=== PATIENT | female | born 1970 | race Caucasian/White ===

== ENCOUNTER 2017-03-22 02:21 | Observation (INO) | payer BC ==
[~2017-03-22 02:21] MED LIST: Z.0.NO CURRENT MEDS
[2017-03-22 02:22] VITALS: BP 139/69; PULSE 114; RESP 18; TEMP 97.8; O2SAT 98
[2017-03-22] MEDS ORDERED: ASPIRIN 81 MG CHEW TAB PO ONE (03:00)
[2017-03-22] MEDS ORDERED: SODIUM CHLORIDE 0.9% FLUSH 10 ML FLUSH IVF PRN (03:00)
[2017-03-22] MEDS ORDERED: NITROGLYCERIN 0.4 MG SL 25 TABS/BTL SL ONE (03:00)
[2017-03-22 03:01] VITALS: BP_SYST 183; BP_SYST 189; BP_DIAS 102; BP_DIAS 108; PULSE 99; RESP 18; O2SAT 98
--- NOTE | 2017-03-22 03:21 | RADRPT ---
EXAM DATE/TIME: 03/22/2017 02:59 [facility] COMPARISON: No previous studies available for comparison. INDICATIONS : Chest pain. MEDICAL HISTORY : None. SURGICAL HISTORY : None. ENCOUNTER: Initial ACUITY: 1 day PAIN SCORE: 0/10 LOCATION: Bilateral chest FINDINGS: A single view of the chest demonstrates the lungs to be symmetrically aerated without evidence of mas s, infiltrate or effusion. The cardiomediastinal contours are unremarkable. Osseous structures are intact. Anterior plate in the lower cervical region. CONCLUSION: No infiltrates seen. Titus Batres MD on March 22, 2017 at 3:18 Board Certified Radiologist. This report was verified electronically.
--- NOTE | 2017-03-22 03:23 | PD ---
HPI Chief Complaint: Chest Pain Time Seen by Provider: 02:50 Travel History International Travel<30 days: No Contact w/Intl Traveler<30days: No Traveled to known affect area: No History of Present Illness HPI The patient is a 46 year old female who presents to the [facility] emergency department with a history of chest pain that she reports has been coming and going for the last 2 weeks. She reports that it seems to get worse at night. She denies having any associated indigestion or heartburn. She reports that the pain is a sharp sensation with a sensation of fluttering in her chest. She reports that she has associated shortness of breath, nausea, and diaphoresis. She reports that the pain radiates up into the left side of her neck and left arm. She reports that prior to arrival the pain awoke her from sound sleep. She reports that the pain had been occurring and lasting for a few minutes at a time, however prior to arrival lasting longer than usual. She reports that the pain was a 10 out of 10 in severity. On arrival it is a 3 out of 10 in severity. She denies any prior history of cardiac disease. She reports that she did have a stress test that was reportedly unremarkable 2 years ago. She reports having a history of borderline high blood pressure. She denies having any prior history of hyperlipidemia or diabetes mellitus. On review of systems, the patient denies any recent fever, cough, congestion, neck pain, abdominal pain, vomiting, diarrhea, urinary symptoms, or other neurologic symptoms. [facility] Past Medical History Narrative Medical The patient's past medical history is significant for lupus, history of interstitial pneumonitis, history of headaches Blood Disorders: No Cancer: No Cardiovascular Problems: No Diminished Hearing: No Headaches: Yes Immune Disorder: Yes (LUPUS) Psychiatric: No Reproductive: No Respiratory: Yes (INTERSTITIAL PNEUMONITIS) Pneumonia: Yes (interstitial pneumonitis) ?: Not Past Surgical History Narrative Surgical The patient's past surgical history is significant for bronchoscopy, disc replacement in her neck, open lung biopsy 1998. Body Medical Devices: NONE Thoracic Surgery: Yes (OPEN LUNG BX 1998) Other Surgery: Yes (bronchoscopy) Social History Alcohol Use: Yes (OCC) Tobacco Use: No Substance Use: No Allergies-Medications (Allergen,Severity, Reaction): Coded Allergies: Mushroom (Verified Allergy, Unknown, SWELLING, 03/22/17) Shellfish (Verified Allergy, Unknown, 8/14/17) Reported Meds & Prescriptions Reported Meds & Active Scripts Active Reported No Current Meds (Miscellaneous Medication) Misc Review of Systems Except as stated in HPI: all other systems reviewed are Neg General / Constitutional: No: Fever Eyes: No: Visual changes HENT: No: Headaches Cardiovascular: Positive: Chest Pain or Discomfort, Diaphoresis, Claudication, No: Dyspnea on exertion Respiratory: Positive: Shortness of Breath Gastrointestinal: Positive: Nausea, No: Vomiting, Diarrhea, Abdominal Pain Genitourinary: No: Dysuria Musculoskeletal: No: Pain Skin: No Rash Neurologic: No: Weakness Psychiatric: No: Depression Endocrine: No: Polydipsia Hematologic/Lymphatic: No: Easy Bruising Physical Exam Narrative General: The patient is a well-developed well-nourished female who is uncomfortable appearing on arrival. Head and Neck exam: Head is normocephalic atraumatic. Eyes: EOMI, pupils are equal round and reactive to light. Nose: Midline septum with pink mucous membranes Mouth: Dentition unremarkable. Moist mucus membranes. Posterior oropharynx is not erythematous. No tonsillar hypertrophy. Uvula midline. Airway patent. Neck: No palpable lymphadenopathy. No nuchal rigidity. No thyromegaly. Cardiovascular: Regular rate and rhythm without murmurs, gallops, or rubs. No pulse deficit to the extremities and simultaneous auscultation and palpation of her radial artery. Lungs: Clear to auscultation bilaterally. No wheezes, rhonchi, or rales. Abdomen: Soft, without tenderness to palpation in all 4 quadrants of the abdomen. No guarding, rebound, or rigidity. Normal bowel sounds are audible. No tenderness on palpation of McBurney's point. Extremities: No clubbing, cyanosis, or edema. 2+ pulses in all 4 extremities. No calf tenderness on palpation. Back: No spinous process tenderness to palpation. No costovertebral angle tenderness to palpation. Neurologic Exam: Grossly nonfocal. Skin Exam: No rash noted. Intact skin that is warm and slightly diaphoretic Data Data Last Documented VS Vital Signs Date Time Temp Pulse Resp B/P Pulse Ox O2 Delivery O2 Flow Rate FiO2 03/22/17 03:29 16 03/22/17 03:01 98 Room Air 03/22/17 03:01 99 183/108 189/102 03/22/17 02:22 97.8 Orders Electrocardiogram (03/22/17 02:51) B-Type Natriuretic Peptide (03/22/17 02:51) Ckmb (Isoenzyme) Profile (03/22/17 02:51) Complete Blood Count With Diff (03/22/17 02:51) Comprehensive Metabolic Panel (03/22/17 02:51) D-Dimer (03/22/17 02:51) Magnesium (Mg) (03/22/17 02:51) Prothrombin Time / Inr (Pt) (03/22/17 02:51) Act Partial Throm Time (Ptt) (03/22/17 02:51) Troponin I (03/22/17 02:51) Lipase (03/22/17 02:51) Chest, Single Ap (03/22/17 02:51) Ecg Monitoring (03/22/17 02:51) Bilateral Bp Monitoring (03/22/17 02:51) Iv Access Insert/Monitor (03/22/17 02:51) Oximetry (03/22/17 02:51) Oxygen Administration (03/22/17 02:51) Aspirin Chew (Aspirin Chew) (03/22/17 03:00) Sodium Chloride 0.9% Flush (Ns Flush) (03/22/17 03:00) Nitroglycerin Sl (Nitrostat Sl) (03/22/17 03:00) Ed Urine Pregnancytest Poc (03/22/17 02:51) Nitroglycerin 2% Oint (Nitroglycerin 2% (03/22/17 03:30) Westergren Sedimentation Rate (03/22/17 03:23) Admit Order (Ed Use Only) (03/22/17 04:10) Labs Laboratory Tests Test 03/22/17 03:23 White Blood Count 10.8 TH/MM3 Red Blood Count 4.62 MIL/MM3 Hemoglobin 13.5 GM/DL Hematocrit 39.7 % Mean Corpuscular Volume 85.8 FL Mean Corpuscular Hemoglobin 29.2 PG Mean Corpuscular Hemoglobin 34.0 % Concent Red Cell Distribution Width 14.1 % Platelet Count 247 TH/MM3 Mean Platelet Volume 9.3 FL Neutrophils (%) (Auto) 63.8 % Lymphocytes (%) (Auto) 26.7 % Monocytes (%) (Auto) 6.8 % Eosinophils (%) (Auto) 1.9 % Basophils (%) (Auto) 0.8 % Neutrophils # (Auto) 6.9 TH/MM3 Lymphocytes # (Auto) 2.9 TH/MM3 Monocytes # (Auto) 0.7 TH/MM3 Eosinophils # (Auto) 0.2 TH/MM3 Basophils # (Auto) 0.1 TH/MM3 CBC Comment DIFF FINAL Differential Comment Prothrombin Time 9.6 SEC Prothromb Time International 0.9 RATIO Ratio Activated Partial 21.5 SEC Thromboplast Time D-Dimer Quantitative (PE/DVT) 0.24 MG/L FEU Sodium Level 141 MEQ/L Potassium Level 4.0 MEQ/L Chloride Level 106 MEQ/L Carbon Dioxide Level 26.8 MEQ/L Anion Gap 8 MEQ/L Blood Urea Nitrogen 11 MG/DL Creatinine 1.00 MG/DL Estimat Glomerular Filtration 60 ML/MIN Rate Random Glucose 115 MG/DL Calcium Level 8.7 MG/DL Magnesium Level 2.0 MG/DL Total Bilirubin 0.2 MG/DL Aspartate Amino Transf 16 U/L (AST/SGOT) Alanine Aminotransferase 17 U/L (ALT/SGPT) Alkaline Phosphatase 88 U/L Total Creatine Kinase 57 U/L Troponin I LESS THAN 0.02 NG/ML B-Type Natriuretic Peptide 25 PG/ML Total Protein 7.3 GM/DL Albumin 3.2 GM/DL Lipase 146 U/L [facility] Medical Decision Making Medical Screen Exam Complete: Yes Emergency Medical Condition: Yes Medical Record Reviewed: Yes Interpretation(s) Last Impressions Chest X-Ray 03/22/17 0251 Signed Impressions: Service Date/Time: Wednesday, March 22, 2017 02:59 - CONCLUSION: No infiltrates seen. Titus Batres MD Differential Diagnosis Acute coronary syndrome, versus pulmonary embolism, versus pericarditis, versus acid reflux, versus pneumonia versus pneumothorax Narrative Course During the course of the patients emergency department visit, the patients history, examination, and differential diagnosis were reviewed with the patient. The patient had IV access obtained and blood work sent for analysis. The patient was placed on a pie filler with oximetry and blood pressure monitoring. An ECG was done on arrival. The patient's ECG reveals a sinus rhythm heart rate of 94, no acute ST segment elevation or depression, T waves are inverted in lead 3, QRS duration is 102 ms, QTC 411 ms. The patient was initially provided 162 mg of aspirin by mouth, nitroglycerin sublingual times one with resolution of pain, nitroglycerin 1 inch the chest wall was then applied. The patients laboratory studies were reviewed and remarkable for a CBC that is within normal limits, CMP is remarkable for a glucose of 115, CPK 57, troponin I less than 0.02, BNP 25, lipase 147, d-dimer is 0.2 for decreased the likelihood of pulmonary embolism in this patient with no other significant risk factors. PT 9.6, PTT 21.5. Radiology studies were reviewed and remarkable for a chest x-ray that shows no acute cardiopulmonary disease. The patients results were discussed with the patient, including the plan of care. I explained that further testing and/ or monitoring is indicated based on the patients history, examination, and/ or laboratory findings. Therefore, I recommended admission for additional evaluation. The patient expressed understanding and was agreeable with this plan. The patient was admitted to the hospital in [facility] and sent to a bed under the care of of the chest pain center. Diagnosis Primary Impression: Chest pain, rule out acute myocardial infarction Admitting Information Admitting Physician Requests: Lynnette Gutierrez MD Mar 22, 2017 03:23
[2017-03-22] MEDS ORDERED: NITROGLYCERIN 2% OINT 1 GM PACKET TOPICAL ONE (03:30)
[2017-03-22 03:38] LABS: AUTOMATED NEUTROPHIL # 6.9 TH/MM3 (1.8-7.7); BASOPHIL # 0.1 TH/MM3 (0-0.2); BASOPHIL % 0.8 % (0.0-2.0); EOSINOPHIL # 0.2 TH/MM3 (0-0.4); EOSINOPHIL % 1.9 % (0.0-4.0); HEMATOCRIT 39.7 % (35.0-46.0); HEMO FLAGS DIFF FINAL; LYMPH % 26.7 % (9.0-44.0); LYMPHOCYTE # 2.9 TH/MM3 (1.0-4.8); MEAN CELL VOLUME 85.8 FL (80.0-100.0); MEAN CORPUSCULAR HEMOGLOBIN 29.2 PG (27.0-34.0); MONO % 6.8 % (0.0-8.0); NEUT % 63.8 % (16.0-70.0); PLATELET COUNT 247 TH/MM3 (150-450); RED BLOOD COUNT 4.62 MIL/MM3 (4.00-5.30); RED CELL DISTRIBUTION WIDTH 14.1 % (11.6-17.2); WHITE BLOOD COUNT 10.8 TH/MM3 (4.0-11.0)
[2017-03-22 03:56] LABS: APTT (PATIENT) 21.5 SEC (24.3-30.1); INTERNATIONAL NORMALIZED RATIO 0.9 RATIO; PROTHROMBIN TIME - PATIENT 9.6 SEC (9.8-11.6)
[2017-03-22 03:59] LABS: ALKALINE PHOSPHATASE 88 U/L (45-117); ALT (GPT) 17 U/L (10-53); ANION GAP 8 MEQ/L (5-15); AST (GOT) 16 U/L (15-37); BICARBONATE 26.8 MEQ/L (21.0-32.0); BLOOD UREA NITROGEN 11 MG/DL (7-18); CHLORIDE 106 MEQ/L (98-107); CREATINE KINASE 57 U/L (26-192); GLOMERULAR FILTRATION RATE 60 ML/MIN (>89); SODIUM (NA) 141 MEQ/L (136-145); TOTAL BILIRUBIN ADULT 0.2 MG/DL (0.2-1.0)
[2017-03-22 04:24] VITALS: BP 156/90; PULSE 85; RESP 16; O2SAT 98
[2017-03-22] MEDS ORDERED: SODIUM CHLORIDE 0.9% FLUSH 10 ML FLUSH IV FLUSH PRN (05:00)
[2017-03-22] MEDS ORDERED: ACETAMINOPHEN 500 MG CPLT PO PRN (05:00)
[2017-03-22 05:34] VITALS: O2SAT 98
[2017-03-22 07:29] LABS: CREATINE KINASE 42 U/L (26-192)
[2017-03-22 07:44] VITALS: PULSE 83
[2017-03-22 07:49] VITALS: BP 133/74; PULSE 80; RESP 16; TEMP 98; O2SAT 96
--- NOTE | 2017-03-22 08:03 | HHI.HP ---
HPI Primary Care Physician Daniela Thomson MD Chief Complaint Chest pain History of Present Illness 46-year-old female with history of lupus and interstitial pneumonia presents to emergency room for further evaluation of chest pain. Onset 2 weeks ago. Episodes initially occurred every other night, while at work and on way driving home. Episodes begin as a fluttering in her chest, she then "gasps" for breath, develops tightness under her left jaw followed by shooting pains to left arm stopping at left wrist, lastly with left anterior chest tightness accompanied with sharp, stabbing pains. Duration of episodes approx. 5 minutes. Associated symptoms nausea, shortness of breath, and diaphoresis. Denied vomiting. Last night's episode occurred at 2 AM and more severe than past episodes. No known precipitating or relieving factors. Denies similar pain in the past. Review of Systems General: No fatigue,weakness, fever, chills, or recent illness. Has been her general state of health. HEENT: No ARREGUIN, no vision changes, no dysphasia CV: As stated above. Denies any current chest pain or pressure. Occasional leg cramps that awake her from sleep. RESP: History of interstitial pneumonitis and reports low pulmonary function. 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 No SOB, cough, wheeze, recent URI, or history of asthma. GI: No nausea, vomiting, bowel changes, diarrhea, constipation, pain, distention , melena, or blood in the stool. No change in appetite, no unintentional weight gain or weight loss. : No dysuria, urgency, frequency, hematuria, recurrent UTIs, or history of kidney stones. EXT: No lower leg edema, no paraesthesias MS: History of cervical disk replacement 2007. No discomfort, change in ROM, injury, or trauma. NEURO: No dizziness, LOC, or motor/sensory deficits PSYCH: No anxiety or depression. Current situational stress related to job. SKIN: No rashes, no concerning lesions Past Family Social History Allergies: Coded Allergies: Mushroom (Verified Allergy, Unknown, SWELLING, 03/22/17) Shellfish (Verified Allergy, Unknown, 03/22/17) Past Medical History Lupus, interstitial pneumonitis Past Surgical History Cervical disc replaced (2007) Reported Medications Reported Meds & Active Scripts Active Reported No Current Meds (Miscellaneous Medication) Misc Active Ordered Medications Current Medications Medications (Trade) Dose Ordered Sig/Shirin Route Start Time Stop Time Status Last Admin (NS Flush) 2 ml BID IV FLUSH 03/22/17 09:00 (Tylenol) 500 mg Q4H PRN PO 03/22/17 05:00 Family History Brother first IN age 38. Mother CABG in her 60s. Social History No known DM, hyperlipidemia, CAD, or hypertension. Quick smoking 1994. Denies any alcohol or illegal drug use. Endorses a sedentary lifestyle, works in a [employer] office, . Past Cardiac Testing Treadmill stress test 2 years ago routine workup. Unremarkable. Physical Exam Vital Signs Vital Signs Date Time Temp Pulse Resp B/P Pulse Ox O2 Delivery O2 Flow Rate FiO2 03/22/17 07:49 98.0 80 16 133/74 96 03/22/17 07:44 83 03/22/17 05:34 98 21 03/22/17 04:24 85 16 156/90 98 Room Air 03/22/17 03:29 16 03/22/17 03:01 98 Room Air 03/22/17 03:01 Room Air 03/22/17 03:01 99 18 183/108 98 Room Air 189/102 03/22/17 02:45 98 Room Air 03/22/17 02:22 97.8 114 18 139/69 98 Room Air Physical Exam GENERAL: Alert WN, WD, NAD, pleasant, female HEAD: NC, AT EYES: Sclera clear, conjunctiva without injection, pupils equal and round ENT: Mucous membranes pink and moist NECK: Supple, no masses, trachea midline CV: RRR, without murmur, rub, gallop, no JVD, S1-S2 no S3-S4. RESP: Clear lungs throughout bilateral, no crackles, wheeze, rhonchi, symmetrical chest rise, nonlabored, able to speak in full sentences ABD: Soft, NT, ND, no masses, positive bowel tones BACK: No CVAT, no scoliosis EXT: Pulses +24, no dependent edema MS: Normal tone 4 extremities, nontender, no obvious deformities, full range of motion NEURO: CN II through CN XII grossly intact, motor strength 5/5 PSYCH: A+O 3, pleasant affect, appropriate speech, appropriate mood and affect , insight and judgment SKIN: Normal turgor, normal texture, no lesions, no rashes, brisk cap refill, even hair distribution Laboratory Laboratory Tests Test 03/22/17 03/22/17 03:23 06:30 White Blood Count 10.8 Red Blood Count 4.62 Hemoglobin 13.5 Hematocrit 39.7 Mean Corpuscular Volume 85.8 Mean Corpuscular Hemoglobin 29.2 Mean Corpuscular Hemoglobin 34.0 Concent Red Cell Distribution Width 14.1 Platelet Count 247 Mean Platelet Volume 9.3 Neutrophils (%) (Auto) 63.8 Lymphocytes (%) (Auto) 26.7 Monocytes (%) (Auto) 6.8 Eosinophils (%) (Auto) 1.9 Basophils (%) (Auto) 0.8 Neutrophils # (Auto) 6.9 Lymphocytes # (Auto) 2.9 Monocytes # (Auto) 0.7 Eosinophils # (Auto) 0.2 Basophils # (Auto) 0.1 CBC Comment DIFF FINAL Differential Comment Prothrombin Time 9.6 Prothromb Time International 0.9 Ratio Activated Partial 21.5 Thromboplast Time D-Dimer Quantitative (PE/DVT) 0.24 Sodium Level 141 Potassium Level 4.0 Chloride Level 106 Carbon Dioxide Level 26.8 Anion Gap 8 Blood Urea Nitrogen 11 Creatinine 1.00 Estimat Glomerular Filtration 60 Rate Random Glucose 115 Calcium Level 8.7 Magnesium Level 2.0 Total Bilirubin 0.2 Aspartate Amino Transf 16 (AST/SGOT) Alanine Aminotransferase 17 (ALT/SGPT) Alkaline Phosphatase 88 Total Creatine Kinase 57 42 Troponin I LESS THAN 0.02 LESS THAN 0.02 B-Type Natriuretic Peptide 25 Total Protein 7.3 Albumin 3.2 Lipase 146 Result Diagram: 03/22/17 0323 03/22/17 0323 Imaging Last Impressions Chest X-Ray 03/22/17 0251 Signed Impressions: Service Date/Time: Wednesday, March 22, 2017 02:59 - CONCLUSION: No infiltrates seen. Titus Batres MD Course EKG Normal sinus rhythm, left axis deviation, no ST or T-segment changes Assessment and Plan Assessment and Plan Atypical chest painadmitted to chest pain center. Ruled out with 3 sets of EKGs and cardiac enzymes. Seen and evaluated by Dr. Emanuel Keating. Perceive a chemical stress test. Naturally if stress is unremarkable we'll discharge later this afternoon. Patient agreeable to plan of care. Cristy Wild Mar 22, 2017 08:03
[2017-03-22] MEDS ORDERED: NITROGLYCERIN 0.4 MG SL 25 TABS/BTL SL PRN (08:15)
[2017-03-22] MEDS ORDERED: ONDANSETRON HCL 4 MG/2 ML VIAL IV PRN (08:15)
[2017-03-22] MEDS ORDERED: ASPIRIN 325 MG TAB PO SCH (09:00)
[2017-03-22] MEDS ORDERED: SODIUM CHLORIDE 0.9% FLUSH 10 ML FLUSH IV FLUSH SCH (09:00)
[2017-03-22] MEDS ORDERED: REGADENOSON INJ 0.4 MG/5 ML SYR ONE (10:22)
[2017-03-22] MEDS ORDERED: AMINOPHYLLINE INJ 250 MG/10 ML VIAL ONE (10:51)
--- NOTE | 2017-03-22 11:41 | RADRPT ---
EXAM DATE/TIME: 03/22/2017 09:21 [facility] COMPARISON: No previous studies available for comparison. INDICATIONS : Mid chest pain with shortness of breath and nausea for two weeks. Angina. DOSE: 27.2 mCi Tc99m Myoview at stress. 8.8 mCi Tc99m Myoview at rest. 0.4 mg Lexiscan STRESS SYMPTOMS: Nausea, dyspnea, and lightheaded. MEDICATIONS: 1.) 100 mg Aminophylline IV EJECTION FRACTION: 64% MEDICAL HISTORY : Lupus. SURGICAL HISTORY : Discectomy, cervical. ENCOUNTER: Initial ACUITY: 2 weeks PAIN SCALE: 10/10 LOCATION: Midsternal chest TECHNIQUE: The patient underwent pharmacologic stress with infusion of prescribed dose. Continuous ECG tracing was monitored during stress. Gated SPECT imaging was performed after stress and conventional SPECT i maging was performed at rest. The examination was performed on a SPECT/CT scanner, both attenuation and non-corrected datasets were reviewed. FINDINGS: DISTRIBUTION: The maximum perfused segment at stress is in the anterolateral wall. PERFUSION STUDY: The pattern of perfusion at stress is within normal limits. SSS=0. GATED STUDY: There is intact wall motion and thickening without hypokinetic or dyskinetic segments. CONCLUSION: 1. Normal left ventricle perfusion. 2. Normal left ventricle wall motion with calculated ejection fraction of 64%. RISK CATEGORY: Low (<1% Annual Mortality Rate) Herson Paul MD on March 22, 2017 at 11:36 Board Certified Radiologist. This report was verified electronically.
--- NOTE | 2017-03-22 11:56 | HHI.DCPOC ---
Discharge Care Plan Diagnosis: (1) Atypical chest pain Goals to Promote Your Health * To prevent worsening of your condition and complications * To maintain your health at the optimal level Directions to Meet Your Goals Take your medications as prescribed Follow your dietary instruction Follow activity as directed Keep your appointments as scheduled Take your immunizations and boosters as scheduled If your symptoms worsen call your PCP, if no PCP go to Urgent Care Center or Emergency Room Smoking is Dangerous to Your Health. Avoid second hand smoke Call the 24-hour hour crisis hotline for domestic abuse at Cristy Wild Mar 22, 2017 11:56
--- NOTE | 2017-03-22 15:08 | EKG ---
Date Performed: 03/22/2017 Time Performed: 06:39:15 PTAGE: 46 years EKG: Sinus rhythm POSSIBLE LEFT ATRIAL ENLARGEMENT POSSIBLE LEFT VENTRICULAR HYPERTROPHY ABNORMAL ECG Since PREVIOUS TRACING , no significant change noted DOCTOR: Emanuel Keating Interpretating Date/Time 03/22/2017 15:07:31
--- NOTE | 2017-03-22 15:12 | EKG ---
Date Performed: 03/22/2017 Time Performed: 02:43:04 PTAGE: 46 years EKG: Sinus rhythm POSSIBLE LEFT ATRIAL ENLARGEMENT POSSIBLE LEFT VENTRICULAR HYPERTROPHY MINIMAL ST DEPRESSION ABNORMA L ECG PREVIOUS TRACING : 02/22/2011 12.25 Since previous tracing, no significant change noted DOCTOR: Emanuel Keating Interpretating Date/Time 03/22/2017 15:11:18
--- NOTE | 2017-03-22 15:16 | TR ---
Date Performed: 03/22/2017 Time Performed: 10:25:32 DOCTOR: Emanuel Keating DRUG LIST: CLINICAL HISTORY: REASON FOR TEST: REASON FOR ENDING: OBSERVATION: CONCLUSION: Lexiscan stress test was performed under standard four minute protocol. Radionuclid e was injected one minute prior to ending the test. No electrocardiographic abormalities were present to suggest ischemia. Nuclear imaging and interpretation are pending. COMMENTS:
== END 2017-03-22 13:16 | disposition home or self-care (01) ==
LOC: NEPE 02:21 → NEDA 04:12 → NEPFCDU 05:50
DX: R07.89 Other chest pain (principal); R06.02 Shortness of breath; R94.31 Abnormal electrocardiogram [ECG] [EKG]
CPT/HCPCS: 71010; 78452; 80053; 82550; 83690; 83735; 83880; 84484; 84703; 85025; 85379; 85610; 85652; 85730; 93005; 93017; 99285; A9502; G0378; J0280; J2785